=== PATIENT | male | born 1950 | race Caucasian/White ===

== ENCOUNTER 2023-05-19 12:18 | Outpatient (CLI) | payer MEDICARE, OTHER, SELFPAY ==
--- NOTE | ~2023-05-19 | PE_ITS ---
EXAMINATION: PET_PETPSMAST_PT DATE: 05/19/2023 15:09 INDICATION: Prostate cancer TECHNIQUE: 11.2 mCi of pipflufolastat F-18 (18-F-DCFPyL) was administered i.v. Low dose computed fidel ography (CT) images were acquired from the base of the brain to the base of the brain to the proximal thighs for attenuation correction and anatomic localization. Positron emission tomography (PET) imag es were acquired in the same distribution beginning 72 minutes after injection. Images including fuse d PET/CT images were reconstructed in axial, coronal, and sagittal planes. Automated exposure control technique was employed. The dose-length product was 1281.70mGy-cm. COMPARISON: None FINDINGS: Head/neck: Typical pattern of symmetric physiologic increased activity in the lacrimal, parotid and submandibula r glands as well as along the mucosa of the nasal and oral cavities, the debbie-, naso- and hypopharynx, the glottis and esophagus. No pathologically enlarged cervical lymphadenopathy or suspicious foci of increased uptake in the visualized head or neck. Chest: Mild atelectasis at the bilateral lung bases. No suspicious pulmonary nodules, pneumonia, pulmonary e aide or pleural effusion. Heart size is normal. Atherosclerotic coronary artery calcification. No per icardial effusion. Aortic valve calcific lesion. Thoracic aorta is normal in caliber. No pathological ly enlarged or PSMA avid thoracic lymphadenopathy. Abdomen/pelvis/proximal thighs: Physiologic renal accumulation and excretion of activity in the kidneys, bladder and along portions o f ureters. Normal degree and slightly heterogenous pattern of increased uptake throughout the liver a nd spleen without radiologic correlate or dominant PSMA avid lesion. Cholecystectomy clips at the gal lbladder fossa. The pancreas and bilateral adrenal glands are normal. Moderate uptake scattered throu ghout the bowels with typical duodenal and proximal jejunal predominance and without radiologic corre late, also likely physiologic. Normal appendix. Small fat-containing umbilical hernia. Prostatomegaly with 2 focal regions measuring approximately 1.5 cm each with prominent increased uptake, the more c audal in the posterior midline of the prostate with maximal SUV of 76.6 and the more cephalad along t he right side of the prostate with maximal SUV of 23.6 which are both consistent with primary prostat e cancer. There is a tiny focus of mild increased uptake with maximal SUV of 5.4 positioned along the left external iliac vein without an evident corresponding lymph node to more specifically suggest me tastatic disease. No other abnormal foci of increased uptake or pathologically enlarged lymphadenopat hy in the abdomen, pelvis or proximal thighs. Musculoskeletal: Severe lumbar spondylosis. There are bridging osteophytes at multiple levels in the spine, consistent with diffuse idiopathic skeletal hyperostosis (DISH). No suspicious lytic, blastic or PSMA avid bone lesions. IMPRESSION: 1. 2 small regions of prominent increased activity at the prostate consistent with primary prostate c ancer. 2. Tiny focus of mildly increased uptake along the left common iliac vein without evident correspondi ng lymph node to more specifically suggest metastatic disease. No other lesions suspicious for metast atic disease. Reviewed, dictated and finalized at location A. IMPRESSION: 1. 2 small regions of prominent increased activity at the prostate consistent w ith primary prostate cancer. 2. Tiny focus of mildly increased uptake along the left common iliac vein witho ut evident corresponding lymph node to more specifically suggest metastatic dis ease. No other lesions suspicious for metastatic disease.
== END 2023-05-19 12:19 | disposition home or self-care (01) ==
PROVIDERS: Visit Provider Urology
DX: C61 Malignant neoplasm of prostate (principal)
CPT/HCPCS: 78815; A9595

== ENCOUNTER 2023-06-05 13:36 | Outpatient (CLI) | payer MEDICARE, OTHER, SELFPAY ==
--- NOTE | ~2023-06-05 | XR_ITS ---
EXAMINATION: XR chest 2V DATE: 06/05/2023 15:43 INDICATION: Malignant neoplasm of prostate TECHNIQUE: PA and lateral views of the chest were obtained. COMPARISON: None FINDINGS: Mild streaky atelectasis/scarring at the bilateral lung bases. No other airspace opacities, pulmonary edema or pleural effusion. The cardiomediastinal silhouette is normal. Mild thoracic spondylosis. IMPRESSION: 1. Mild bibasilar atelectasis/scarring. Reviewed, dictated and finalized at location A.
[2023-06-05 15:45] LABS: Appearance Urine Clear (Clear); Basophils Absolute Auto 0.1 K/mm3 (0.0-0.1); Basophils Percent Auto 0.7 % (0.2-1.2); Bilirubin Urine Negative (Negative); Blood Urine Negative (Negative); Color Urine Yellow (Yellow); Eosinophils Absolute Auto 0.1 K/mm3 (0-0.3); Eosinophils Percent Auto 1.7 % (0-4.4); Glucose Urine UA Negative (Negative); Hematocrit 41.3 % (42.0-52.0); Hemoglobin 13.6 g/dL (14.0-18.0); Immature Granulocyte Absolute 0.03 K/mm3 (0.00-0.031); Immature Granulocyte Percent A 0.4 % (0-0.5); Ketones Urine Negative (Negative); Leukocyte Esterase Ur Negative LEU/UL (Negative); Lymphocytes Absolute Auto 1.86 K/mm3 (0.9-3.2); Lymphocytes Percent Auto 22.9 % (18.3-44.2); Mean Corpuscular HGB Conc 32.9 g/dl (32-36); Mean Corpuscular Hemoglobin 31.3 pg (26-34); Mean Corpuscular Volume 95.2 fl (80-100); Mean Platelet Volume 10.1 fl (7.4-10.4); Monocytes Absolute Auto 0.7 K/mm3 (0.1-0.6); Monocytes Percent Auto 8.5 % (2.6-8.5); Neutrophils Absolute Auto 5.3 K/mm3 (1.3-6.7); Neutrophils Percent Auto 65.8 % (45.5-73.1); Nitrate Urine Negative (Negative); Platelet Count Result 190 k/mm3 (150-375); Protein Urine Negative (Negative); Red Blood Count 4.34 M/mm3 (4.6-6.20); Red Cell Distribution Width 13.3 % (11.5-14.5); Specific Grav Ur 1.023 (1.001-1.035); Urobilinogen Urine 0.2 mg/dL (<2.0); White Blood Count 8.1 K/mm3 (4.5-10.0)
[2023-06-05 15:55] LABS: INR 1.1; Prothrombin Time 14.6 Seconds (11.1-14.7)
[2023-06-05 15:56] LABS: Alanine Aminotransferase 25 U/L (6-50); Albumin Level 4.5 g/dL (3.5-5.1); Alkaline Phosphatase 53 U/L (38-126); Anion Gap 9 mmol/L (8-16); Aspartate Amino Transferase 28 U/L (17-59); Bilirubin,Total 1.5 mg/dL (0.2-1.3); Blood Urea Nitrogen 21 mg/dL (9-20); Calcium 9.2 mg/dL (8.4-10.2); Carbon Dioxide 23 mmol/L (22-30); Chloride 106 mmol/L (98-107); Estimated Glomerular Filt Rate > 60; Glucose 98 mg/dL (65-110); Potassium 4.6 mmol/L (3.4-5.0); Sodium 138 mmol/L (137-145)
[2023-06-05 16:25] LABS: Add Urine Microscopic? NO
== END 2023-06-05 13:37 | disposition home or self-care (01) ==
LOC: ANHSURGERY 13:44
PROVIDERS: Visit Provider Urology
DX: Z01.818 Encounter for other preprocedural examination (principal); C61 Malignant neoplasm of prostate; J98.11 Atelectasis
CPT/HCPCS: 36415; 71046; 80053; 81003; 85025; 85610; 85730; 86850; 86900; 86901

== ENCOUNTER 2023-06-12 01:27 | Day surgery (SDC) | payer MEDICARE, OTHER, SELFPAY ==
[2023-06-05 14:16] VITALS: BP 125/78; PULSE 52; RESP 16; TEMP 37.1; O2SAT 98; BMI 40.5
--- NOTE | 2023-06-05 14:33 | PC.NURSE ---
Report to the Outpatient Waiting Room, entrance under the green pavilion located off [facility], at time __6:00AM on date __06/12/23 . Planned Procedure Time: __7:30AM . Time changes happen often and if your time is changed the preop area will call you the afternoon before. - You and your visitor will be asked to self-screen and do not enter if you have any COVID symptoms. - A mask is optional within the hospital at this time. Patients may have clear liquids DAY BEFORE SURGERY (water, carbonated beverages, clear teas, apple juice) AND until 3 hours prior to surgery with a maximum of 20 ounces. Take the following medications with a SIP of water the morning of surgery: __NONE DO NOT STOP ANY OF YOUR OTHER PRESCRIPTION MEDICATIONS PRIOR TO SURGERY ?EXCEPT THE FOLLOWING Medications to discontinue per physician ___HOLD ELIQUIS 2 DAYS PRE-OP- LAST DOSE 06/09/23 HOLD ALL VITAMINS/SUPPLEMENTS 7 DAYS PRE-OP PER DR JURADO- LAST DOSE 06/05/23 Please no make-up, nail swazi, hairspray, perfume, deodorant, or body powder the day of surgery. No jewelry (including any body piercings) or valuables the day of surgery, leave them at home. Please take a shower or bath the night before, or the morning of, surgery with an antibacterial soap. Wear comfortable, loose fitting clothing. Children are encouraged to wear pajamas. - Jewelry must be removed prior to entering the operating room. Rings and piercings that are not removed may be cut off. - The hospital will not accept responsibility for valuables. - Please leave all valuables, including medications, at home the day of surgery. If you are going home after surgery, a licensed bicycle taxi driver must drive you home. - NO public transportation without another adult if you receive anesthesia. - We recommend that an adult stay with you for 24 hours following discharge. - We also recommend that you do not drive, make important decision, drink alcoholic beverages, or take any drugs that were not prescribed by your health care provider for at least 24 hours after your discharge time. Follow any additional instructions given to you from your surgeon. BOWEL PREP PER DR JURADO If you or anyone in your household have experienced Covid symptoms in the past week, please notify your surgeon or the nurse liaison at the phone number below for possible testing. Telephone instructions given to _PATIENT and asked if any additional questions and then verbalized understanding. Patient advised to call surgeon office or pre surgery nurse liaison [phone] if any additional questions.
--- NOTE | 2023-06-06 07:20 | PM.IMHP ---
H&P: HPI History of Present Illness Date/Time: 06/06/23 07:20 Chief Complaint: Prostate cancer Narrative: pleasant 73-year-old recently found to have a palpable prostate nodule on digital rectal examination. His PSA was 0.69. Prostate MRI revealed 1 suspicious lesion in the right posterior medial prostate. Subsequent prostate biopsy showed adenocarcinoma Kristen 4+3=7 5+3=8 arising from that nodule and couple additional sites in the right side of his prostate. Staging PSM a PET scan new showed a very scant amount of uptake along the left common iliac vein without corresponding lymph node. It was otherwise unremarkable. After discussion of therapeutic options he has elected for robotic prostatectomy with bilateral extended pelvic lymphadenectomy. He is aware the risk including, but not limited to, adverse cardiopulmonary events, persistent carcinoma, need for additional procedures ( including pelvic radiation), rectal injury, erectile dysfunction and urinary incontinence. Review of Systems Cardiovascular: Cardiovascular: Denies chest pain, Denies lightheadedness, Denies palpitations and Denies dyspnea Respiratory: Respiratory: Denies dyspnea Gastrointestinal: Gastrointestinal: Denies diarrhea, Denies nausea and Denies vomiting Genitourinary: Genitourinary: Denies hematuria and Denies dysuria Endocrine: Endocrine: Denies palpitations PMFSH Social History Social History Smoking status: Never smoker Substance use: never Living arrangements: with family Additional living arrangements comments: Spiritual care concerns: No Meds Home Medications and Allergies Home Medications Medication Instructions Recorded Confirmed Type Mentanx 1 cap PO BID 06/05/23 06/05/23 History acetaminophen 500 mg capsule 1,000 mg PO Q6H PRN Pain 06/05/23 06/05/23 History apixaban 5 mg tablet (Eliquis) 5 mg PO BID 06/05/23 06/05/23 History diltiazem HCl 180 mg 180 mg PO QACDINNER 06/05/23 06/05/23 History capsule,extended release 24 hr, controlled dulaglutide 1.5 mg/0.5 mL 1.5 mg subcut WEEKLY 06/05/23 06/05/23 History subcutaneous pen injector ([facility]) ezetimibe 10 mg tablet 10 mg PO HS 06/05/23 06/05/23 History finasteride 5 mg tablet 5 mg PO HS 06/05/23 06/05/23 History gabapentin 300 mg capsule 900 mg PO HS 06/05/23 06/05/23 History levothyroxine 150 mcg tablet 150 mcg PO HS 06/05/23 06/05/23 History losartan 100 mg tablet 100 mg PO QAM 06/05/23 06/05/23 History metformin 500 mg tablet,extended 1,000 mg PO BID 06/05/23 06/05/23 History release 24 hr rosuvastatin 5 mg tablet 5 mg PO HS 06/05/23 06/05/23 History tamsulosin 0.4 mg capsule 0.4 mg PO HS 06/05/23 06/05/23 History Allergies Allergy/AdvReac Type Severity Reaction Status Date / Time No Known Allergies Allergy Verified 06/05/23 14:02 Vital Signs Vital Signs - 24 hr 06/05/23 14:16 Temperature 98.7 F Pulse Rate 52 L Respiratory Rate 16 Blood Pressure 125/78 Pulse Oximetry 98 Oxygen Delivery Room Air Exam Const: General: no acute distress Resp: Effort & Inspection: normal respiratory effort GI: Inspection: non-distended GI Palp: No abdominal tenderness and No Guarding due to palpation present (GI) Auscultation: normal bowel sounds Assessment and Plan Assessment and plan (1) Prostate cancer: Code(s): C61 - Malignant neoplasm of prostate Status: Acute Assessment and Plan: Robotic assisted radical prostatectomy and bilateral pelvic lymphadenectomy
[2023-06-12] VITALS (13 sets, daily range): BP systolic 112–162; BP diastolic 63–88; PULSE 59–79; RESP 14–21; TEMP 35.5–36.4; O2SAT 93–100; BMI 39.9
--- NOTE | 2023-06-12 06:30 | WPDHPUPDATE1 ---
History and Physical Update Update Date/Time: 06/12/23 06:30 History and Physical has been reviewed, including an updated exam of the patient. There are NO changes in the patient's condition. Risks, benefits, and alternatives have been discussed and questions answered. Patient agrees to proceed with procedure.
[2023-06-12 06:45] LABS: Glucose Point of Care 104 mg/dl (65-105)
[2023-06-12] MEDS: LACTATED RINGERS 1,000 ML 30 ML IV CONT ×2 (06:45→11:37)
--- NOTE | 2023-06-12 06:49 | WPDANESEPPF ---
Anes - Initial Pre Proc Eval Procedure: Operation Date: 06/12/23 07:30 Proposed Procedures p Robotic Assisted Laparoscopic Prostatectomy with Bilateral Pelvic Lymph Node Dissection - Kirby Rosenbaum MD Date/Time: 06/12/23 06:49 Surgeon: Kirby Rosenbaum MD Pre Op Diagnosis: prostate CA Patient Data Age: 73 Gender: M Height: 1.88 m Weight: 141.2 kg Last Vital Signs Temp 37.1 C 06/05/23 14:16 Pulse 52 L 06/05/23 14:16 Resp 16 06/05/23 14:16 BP 125/78 06/05/23 14:16 Pulse Ox 98 06/05/23 14:16 O2 Del Method Room Air 06/05/23 14:16 Allergies Allergy/AdvReac Type Severity Reaction Status Date / Time No Known Allergies Allergy Verified 06/12/23 06:17 Home Medications Medication Instructions Recorded Confirmed Type Mentanx 1 cap PO BID 06/05/23 06/05/23 History acetaminophen 500 mg capsule 1,000 mg PO Q6H PRN Pain 06/05/23 06/05/23 History apixaban 5 mg tablet (Eliquis) 5 mg PO BID 06/05/23 06/05/23 History diltiazem HCl 180 mg 180 mg PO QACDINNER 06/05/23 06/05/23 History capsule,extended release 24 hr, controlled dulaglutide 1.5 mg/0.5 mL 1.5 mg subcut WEEKLY 06/05/23 06/05/23 [facility] ezetimibe 10 mg tablet 10 mg PO HS 06/05/23 06/05/23 History finasteride 5 mg tablet 5 mg PO HS 06/05/23 06/05/23 History gabapentin 300 mg capsule 900 mg PO HS 06/05/23 06/05/23 History levothyroxine 150 mcg tablet 150 mcg PO HS 06/05/23 06/05/23 History losartan 100 mg tablet 100 mg PO QAM 06/05/23 06/05/23 History metformin 500 mg tablet,extended 1,000 mg PO BID 06/05/23 06/05/23 History release 24 hr rosuvastatin 5 mg tablet 5 mg PO HS 06/05/23 06/05/23 History tamsulosin 0.4 mg capsule 0.4 mg PO HS 06/05/23 06/05/23 History Laboratory Tests 06/12/23 06:41 POC Capillary Glucose 104 mg/dl (65-105) Patient hx anesthesia problems: none Family hx anesthesia problems: none Results Review: All pre-operative results and documents have been reviewed as part of the pre-operative evaluation. [facility] Past Medical History Medical History (Updated 06/12/23 @ 06:50 by Rodolfo Prescott MD) Atrial flutter Diabetes Morbid obesity Prostate CA Surgical History Surgical History (Updated 06/12/23 @ 06:50 by Rodolfo Prescott MD) History of total knee arthroplasty Social History Social History Smoking status: Never smoker Substance use: never Living arrangements: with family Additional living arrangements comments: Spiritual care concerns: No Anes - Eval Final PreProcedure Day of Procedure 06/12/23 06:49 Patient weight: morbidly obese Heart: regular rate and rhythm Lungs: clear to auscultation Airway: Mallampati scale class III Neurological: alert and oriented Last oral intake: >/= 8 hours ASA classification: IV Emergent: no Anesthetic plan: proceed Anesthesia type and monitoring: general ETT and standard monitoring Results Review: All pre-operative results and documents have been reviewed as part of the pre-operative evaluation. Informed Consent: The patient's anesthetic plan and its attendant risks including CO, Arrhythmia, CVA and bleeding and benefits were discussed with the patient/family/POA. Questions were solicited and answers provided to the satisfaction of the patient/family/POA.
[2023-06-12] MEDS: ceFAZolin 3 GM/D5W 100 ML 100 ML IVPB (07:32)
[2023-06-12 11:57] LABS: Glucose Point of Care 146 mg/dl (65-105)
--- NOTE | 2023-06-12 11:59 | W.PM.PROC2 ---
Procedure Note - Detailed Date of Procedure 06/12/23 Pre-op Diagnosis Prostate CA Post-op Diagnosis Same Procedure Performed Robotic assisted radical prostatectomy and bilateral lymphadenectomy (extended) Surgeon Kirby Rosenbaum MD Anesthesia General Description of Procedure The patient was brought to the operative suite, where he was prepped and draped in routine sterile fashion while in a dorsal lithotomy, deep Trendelenburg position. A supraumbilical 10 mm trocar was placed after insufflation of the abdomen with a Veress needle. Three robotic ports were then placed under direct vision. Two of these were placed in the right lower quadrant - 10 cm and 20 cm lateral to, and in line with, the umbilicus. A third robotic trocar was placed 10 cm to the left of the umbilicus, and 20 cm to the left of the umbilicus, a 12 mm standard laparoscopic trocar was placed to be used as an assistant community director port. Lastly, a 5 mm trocar was placed in the left upper quadrant midway between the umbilicus and the left robotic trocar. Attention was then turned to the prostatectomy. I opted for a posterior approach in this patient. An incision was made in the parietal peritoneum along the posterior bladder/posterior prostate about 2 cm above the reflection of the peritoneum over the anterior rectum. The seminal vesicles and vas deferens were immediately identified. Dissection is undertaken in a fashion so as to avoid electrocautery as much as possible, particularly near the tips of the seminal vesicles. Dissection was also carried out in the midline so as to avoid any encounters with the ureters. The vas deferens and the seminal vesicles were dissected in their entirety to the base of the prostate. The plane anterior to Denoviller's fascia, anterior to the rectum and posterior to the prostate was then developed. I then dropped the bladder by incising the anterior parietal peritoneum just lateral to the median umbilical ligaments bilaterally. The bladder was dropped from the anterior abdominal and pelvic wall. The endopelvic fascia was identified and incised bilaterally, allowing for dissection of the posterior-lateral aspect of the prostate. The puboprostatic ligaments were transected near their origin from the posterior pubic ramus. This posterior lateral dissection of the prostate is also undertaken in a fashion so as to avoid electrocautery as much as possible. The dorsal vein of the penis is then secured with an 0 -Vicryl ligature. Attention is then turned to the bladder neck. The anterior bladder neck is incised at the vesico-prostatic junction. The previously placed urethral catheter was drawn through the urethrotomy. A very small bladder neck was maintained throughout the remainder of this dissection. The posterior bladder neck was incised in a fashion so as to avoid any injury to the ureteral orifices. Again, the small aperture of the bladder neck was maintained. The previously dissected vas deferens and the seminal vesicles were brought through the posterior bladder neck incision. The lateral prostatic pedicles were then carefully dissected from the lateral aspect of the prostate bilaterally. The prostatic pedicles were secured with Weck clips and transected. The neurovascular bundles were carefully dissected from the posterior-lateral aspect of the prostate. The dorsal vein of the penis was incised with electrocautery. Using cold scissors, the urethra was incised. After withdrawing the previously placed urethral catheter, the posterior urethra was sharply incised, as was the rectalurethralis muscle. Attention was then turned to an extended bilateral pelvic lymphadenectomy. The limits of this dissection were similar bilaterally. Specifically, the limits were the bifurcation of the common iliac vein proximally, the inguinal ligament distally, the obturator nerve posteriorly and the anterior aspect to the external iliac artery laterally. This dissection was undert
[2023-06-12] MEDS: fentaNYL CITRATE INJ (*CRX) 100 MCG/2 ML VIAL 25 MCG IV PUSH ×4 (12:14→13:01)
--- NOTE | 2023-06-12 13:18 | ADMGEN ---
This patient, Robert Alonso, was admitted to 2 Medical Room 260-. Patient/family oriented to hospital policies and general routines including ID bracelet, bed and alarms, visiting hours, pain management, procedures, bathroom and other care routines, personal items, smoking policy, room service/diet, and visiting hours. Information on how to activate the Rapid Response Team has been discussed. Patient/Family are encouraged to report perceived risks to care and to ask questions if they do not understand what they are told or what they should do.
[2023-06-12 17:01] LABS: Glucose Point of Care 164 mg/dl (65-105)
[2023-06-12] MEDS: metFORMIN HCL XR 500 MG TAB.SR.24H 1000 MG PO (17:53)
[2023-06-12] MEDS: DOCUSATE SODIUM 100 MG CAPSULE PO (17:53)
[2023-06-12] MEDS: LACTATED RINGERS 1,000 ML 125 ML IV CONT (18:00)
[2023-06-12] MEDS: GABAPENTIN 300 MG CAPSULE 900 MG PO (20:34)
[2023-06-12] MEDS: ROSUVASTATIN 5 MG TABLET PO (20:35)
[2023-06-12] MEDS: EZETIMIBE 10 MG TABLET PO (20:35)
[2023-06-12] MEDS: LEVOTHYROXINE SODIUM 150 MCG TABLET PO (20:35)
[2023-06-12 20:41] LABS: Glucose Point of Care 171 mg/dl (65-105)
[2023-06-13 00:59] VITALS: BP 141/66; PULSE 70; RESP 20; TEMP 36.3; O2SAT 99
[2023-06-13 03:00] VITALS: PULSE 70; RESP 20; O2SAT 99
[2023-06-13] MEDS: LACTATED RINGERS 1,000 ML 125 ML IV CONT (03:26)
[2023-06-13 06:00] VITALS: BP 136/63; PULSE 64; RESP 20; TEMP 36.3; O2SAT 98
[2023-06-13 06:14] LABS: Hematocrit 38.7 % (42.0-52.0); Hemoglobin 12.7 g/dL (14.0-18.0)
[2023-06-13 06:19] LABS: Anion Gap 6 mmol/L (8-16); Blood Urea Nitrogen 14 mg/dL (9-20); Calcium 8.8 mg/dL (8.4-10.2); Carbon Dioxide 28 mmol/L (22-30); Chloride 103 mmol/L (98-107); Estimated CRCL calculation 104 ml/min; Estimated Glomerular Filt Rate > 60; Glucose 115 mg/dL (65-110); Sodium 137 mmol/L (137-145)
--- NOTE | 2023-06-13 06:57 | WPDUROPN2 ---
Progress Note: A&P Assessment and Plan (1) Prostate cancer: Code(s): C61 - Malignant neoplasm of prostate Status: Acute Assessment and Plan: Patient doing well postop day 1. Increase ambulation and diet this morning. Anticipate discharge this afternoon. Subjective Subjective Date/Time Seen: 06/13/23 06:57 Interval history: Comfortable, no complaints. Slept well Review of Systems Cardiovascular: Cardiovascular: Denies chest pain, Denies lightheadedness, Denies palpitations and Denies dyspnea Respiratory: Respiratory: Denies dyspnea Gastrointestinal: Gastrointestinal: Denies diarrhea, Denies nausea and Denies vomiting Genitourinary: Genitourinary: Denies hematuria and Denies dysuria Endocrine: Endocrine: Denies palpitations Exam Const: General: no acute distress Resp: Effort & Inspection: normal respiratory effort GI: Inspection: non-distended GI Palp: No abdominal tenderness and No Guarding due to palpation present (GI) Auscultation: normal bowel sounds Objective Data Vital Signs Vital Signs: Vital Signs - 24 hr 06/12/23 11:37 06/12/23 11:45 06/12/23 12:00 Temperature 97 F L Pulse Rate 65 78 67 Respiratory Rate 18 19 14 Blood Pressure 144/75 H 140/70 156/72 H Pulse Oximetry 95 98 100 Oxygen Delivery Simple Face Mask Simple Face Mask Simple Face Mask Oxygen Flow Rate 10 10 10 06/12/23 12:15 06/12/23 12:30 06/12/23 12:45 Temperature Pulse Rate 63 67 66 Respiratory Rate 18 18 17 Blood Pressure 162/70 H 155/71 H 162/63 H Pulse Oximetry 94 96 94 Oxygen Delivery Room Air Room Air Room Air Oxygen Flow Rate 06/12/23 13:00 06/12/23 13:10 06/12/23 13:25 Temperature 96 F L 96.9 F L Pulse Rate 65 65 62 Respiratory Rate 19 16 16 Blood Pressure 159/79 H 112/74 145/67 H Pulse Oximetry 93 98 99 Oxygen Delivery Room Air Oxygen Flow Rate 06/12/23 13:55 06/12/23 14:55 06/12/23 15:30 Temperature 97.4 F L 97.4 F L Pulse Rate 79 77 Respiratory Rate 16 16 Blood Pressure 150/74 H 149/79 H Pulse Oximetry 99 99 Oxygen Delivery Room Air Oxygen Flow Rate 06/12/23 22:12 06/13/23 00:59 06/13/23 03:00 Temperature 97.0 F L 97.4 F L Pulse Rate 59 L 70 70 Respiratory Rate 21 H 20 20 Blood Pressure 143/88 H 141/66 H Pulse Oximetry 100 99 99 Oxygen Delivery Room Air Oxygen Flow Rate Intake/Output Intake/Output: Intake & Output 06/10/23 06/11/23 06/12/23 06/13/23 23:59 23:59 23:59 23:59 Intake Total 440 1000 Balance 440 1000 Meds/Results Medications: Active Medications Generic Name Dose Route Start Last Admin Trade Name Freq PRN Reason Stop Dose Admin Dextrose 12.5 gm 06/12/23 11:56 Dextrose 50% 25 Gm/50 Ml Syringe IV PUSH PRN PRN Hypoglycemia Protocol Docusate Sodium 100 mg 06/12/23 17:00 06/12/23 17:53 Docusate Sodium 100 Mg Capsule PO 100 mg BID LUIS Administration Ezetimibe 10 mg 06/12/23 21:00 06/12/23 20:35 Ezetimibe 10 Mg Tablet PO 10 mg HS LUIS Administration Gabapentin 900 mg 06/12/23 21:00 06/12/23 20:34 Gabapentin 300 Mg Capsule PO 900 mg HS LUIS Administration Glucagon 1 mg 06/12/23 11:56 Glucagon For Inj 1 Mg Vial IM PRN PRN Hypoglycemia Protocol Glucose 15 gm 06/12/23 11:56 Glucose Oral Gel 15 Gm Of Glucse In 37.5 Gm Tube PO PRN PRN Hypoglycemia Protocol Hyoscyamine 0.125 mg 06/12/23 13:10 Hyoscyamine Sulfate 0.125 Mg Tablet SUBLINGUAL Q4H PRN Bladder Spasm Dextrose 1,000 mls @ 100 mls/hr 06/12/23 11:56 Dextrose 5% 1,000 Ml IVPB PRN PRN Hypoglycemia Protocol Lactated Ringer's 1,000 mls @ 125 mls/hr 06/12/23 13:10 06/13/23 03:26 Lr - Lactated Ringers Iv IV CONT 125 mls/hr .Q8H LUIS Administration Insulin Aspart 2 - 5 units 06/12/23 12:00 06/12/23 17:02 Insulin Aspart (*Bkc) 100 Units/Ml SUB-Q Not Given TIDWM LUIS Protocol Ketorolac Trometh
--- NOTE | 2023-06-13 08:16 | WPDANESPN ---
Anes - Prog Note Post-Op Date/Time: 06/13/23 08:16 Cardiovascular status: normal Respiratory status: normal Airway patency: baseline Mental status: baseline Post-Op hydration status: normal Vital Signs: Last Vital Signs Temp 36.3 C L 06/13/23 06:00 Pulse 64 06/13/23 06:00 Resp 20 06/13/23 06:00 BP 136/63 06/13/23 06:00 Pulse Ox 98 06/13/23 06:00 O2 Del Method Room Air 06/13/23 03:00 O2 Flow Rate 10 06/12/23 12:00 Pain Score (VAS): no complaints I/O: Intake & Output 06/12/23 06/13/23 06/13/23 23:59 07:59 15:59 Intake Total 240 1000 Balance 240 1000 Laboratory Tests 06/13/23 05:48 06/13/23 05:48 06/12/23 06/12/23 06/12/23 11:56 16:30 20:34 Hgb Hct Sodium Potassium Chloride Carbon Dioxide Anion Gap BUN Creatinine Estim Creat Clear Calc Estimated GFR Glucose POC Capillary Glucose 146 H 164 H 171 H Calcium 06/13/23 05:48 Hgb 12.7 L Hct 38.7 L Sodium 137 Potassium 4.0 Chloride 103 Carbon Dioxide 28 Anion Gap 6 L BUN 14 D Creatinine 0.80 Estim Creat Clear Calc 104 Estimated GFR > 60 Glucose 115 H POC Capillary Glucose Calcium 8.8 Post-procedural complaints: none Patient Feedback: Patient satisfied with anesthetic care.
[2023-06-13 08:23] LABS: Glucose Point of Care 121 mg/dl (65-105)
[2023-06-13] MEDS: levoFLOXacin 500 MG TABLET PO (08:33)
[2023-06-13] MEDS: metFORMIN HCL XR 500 MG TAB.SR.24H 1000 MG PO (08:33)
[2023-06-13] MEDS: LOSARTAN POTASSIUM 100 MG TABLET PO (08:33)
[2023-06-13 11:59] LABS: Glucose Point of Care 97 mg/dl (65-105)
[2023-06-13] MEDS: ACETAMINOPHEN 500 MG TABLET 1000 MG PO (12:13)
--- NOTE | 2023-06-13 12:18 | PM.DS ---
DS: Admitting Diagnosis Discharge Date 06/13/2023 Admitting Diagnosis Prostate cancer DS: Discharge Diagnosis Discharge Diagnosis (1) Prostate cancer: Code(s): C61 - Malignant neoplasm of prostate Status: Acute DS: Summary Hospital Course Hospital Course: This patient was admitted on the morning of his planned robotic prostatectomy. This procedure was uneventful, as was his postoperative course. By the evening of the procedure he was sitting at the bedside in tolerating a liquid diet. The following morning he was ambulating freely and tolerating regular food. His catheter drainage remained essentially clear throughout. His postoperative hemoglobin and serum creatinine were unremarkable. At the time of discharge he has been instructed in appropriate care for his Leyva catheter with both a leg bag and bedside bag. He will be discharged with plans to follow-up in 1 week with a cystogram. Time Spent with Patient Time attestation: Total time spent providing and/or coordinating discharge services: DS: Data Data Completed and Pending Pending studies at discharge: Pending at discharge 06/12/23 09:27 Surgical [PTH] Routine Labs on day of discharge: Labs from last 24 hours 06/13/23 06/13/23 06/13/23 11:55 08:19 05:48 Hgb 12.7 L Hct 38.7 L Sodium 137 Potassium 4.0 Chloride 103 Carbon Dioxide 28 Anion Gap 6 L BUN 14 D Creatinine 0.80 Estim Creat Clear Calc 104 Estimated GFR > 60 Glucose 115 H POC Capillary Glucose 97 121 H Calcium 8.8 06/12/23 06/12/23 20:34 16:30 Hgb Hct Sodium Potassium Chloride Carbon Dioxide Anion Gap BUN Creatinine Estim Creat Clear Calc Estimated GFR Glucose POC Capillary Glucose 171 H 164 H Calcium Discharge Plan Discharge Patient Disposition: Home, Self-Care Discharge Instructions: 1) Leyva catheter -> leg bag / bedside bag at night. 2) No lifting/straining >15lbs. x3 weeks. 3) No driving x1-week. 4) Resume normal, pre-operative diet. 5) My office will contact regarding follow-up in 1-week with cystogram. Stand Alone Forms: General Discharge Instructions Discharge Orders: Discharge Order (Routine); Ordered 06/13/23 Ordered By: Kirby Rosenbaum Discharge Medications: New docusate sodium [Colace] 100 mg capsule 100 mg PO DAILY Qty: 30 0RF hydrocodone-acetaminophen 5-325 mg tablet 1 - 2 tablet PO Q6H PRN (Reason: pain) Qty: 24 0RF hyoscyamine sulfate 0.125 mg tablet 0.125 mg PO Q6H PRN (Reason: bladder spasms) Qty: 20 2RF cephalexin 500 mg capsule 500 mg PO Q8H Qty: 9 0RF Continued levothyroxine 150 mcg tablet 150 mcg PO HS gabapentin 300 mg capsule 900 mg PO HS losartan 100 mg tablet 100 mg PO QAM metformin 500 mg tablet extended release 24 hr 1,000 mg PO BID diltiazem HCl 180 mg capsule,ext.rel 24h degradable 180 mg PO QACDINNER acetaminophen 500 mg Capsule 1,000 mg PO Q6H PRN (Reason: Pain) ezetimibe 10 mg tablet 10 mg PO HS rosuvastatin 5 mg tablet 5 mg PO HS Trulicity 1.5 mg/0.5 mL pen injector 1.5 mg SUBCUT WEEKLY Rx Instructions: TUESDAYS Mentanx 1 cap PO BID Held Eliquis 5 mg tablet 5 mg PO BID Hold Instructions: Resume on 06/14/23. Discontinued tamsulosin 0.4 mg capsule 0.4 mg PO HS finasteride 5 mg tablet 5 mg PO HS
== END 2023-06-13 13:05 | disposition home or self-care (01) ==
LOC: ANHSURGERY 05:53 → ANH2MED 13:16
PROVIDERS: Visit Provider Urology
PROC: 0VT04ZZ Resection of Prostate, Percutaneous Endoscopic Approach (ICD-10-PCS; CPT 55867; principal; 2023-06-12 07:30)
DX: C61 Malignant neoplasm of prostate (principal); I48.92 Unspecified atrial flutter; E11.9 Type 2 diabetes mellitus without complications; E66.01 Morbid (severe) obesity due to excess calories; Z68.41 Body mass index [BMI] 40.0-44.9, adult; Z79.01 Long term (current) use of anticoagulants; Z79.85 Long-term (current) use of injectable non-insulin antidiabetic drugs; Z79.84 Long term (current) use of oral hypoglycemic drugs
CPT/HCPCS: 55866; 38571; S2900; 36415; 80048; 82948; 85014; 85018; 88305; 88309; A9270; J0330; J0690; J1100; J1170; J2405; J2704; J3010; J7030; J7120; Q9968

== ENCOUNTER 2023-06-20 13:40 | Outpatient (CLI) | payer MEDICARE, OTHER, SELFPAY ==
--- NOTE | ~2023-06-20 | XR_ITS ---
EXAMINATION: CYSTOGRAM DATE: 06/20/2023 14:19 INDICATION: Status post prostatectomy for prostate cancer TECHNIQUE: Initial loftsman radiograph of the pelvis was performed. There was retrograde administration of Omnipaque 350 mixed with saline contrast into patient's existing Leyva catheter. A single radiogra ph and 7 fluoroscopic images including a postvoid image were obtained. Fluoroscopy exposure time was 0.6 minutes. FINDINGS: Contrast fills the bladder outline the bulb of the Leyva catheter. No evident extraluminal bladder le ak or vesicoureteral reflux. Severe lower lumbar spondylosis. IMPRESSION: No bladder leak. Reviewed, dictated and finalized at location A. IMPRESSION: No bladder leak.
== END 2023-06-20 13:41 | disposition home or self-care (01) ==
LOC: ANHIMG 13:43
PROVIDERS: Visit Provider Urology
DX: C61 Malignant neoplasm of prostate (principal)
CPT/HCPCS: 51600; 74430; Q9967

== ENCOUNTER 2025-07-11 12:50 | Outpatient (CLI) | payer MEDICARE, SELFPAY ==
[2025-07-11 13:41] LABS: Anion Gap 9 mmol/L (4-12); Blood Urea Nitrogen 20 mg/dL (9-20); Calcium 9.1 mg/dL (8.4-10.2); Carbon Dioxide 23 mmol/L (22-30); Chloride 105 mmol/L (98-107); Estimated Glomerular Filt Rate > 60; Glucose 132 mg/dL (65-110); Potassium 4.3 mmol/L (3.4-5.0); Sodium 137 mmol/L (137-145)
[2025-07-11 13:52] LABS: Hemoglobin A1C 6.0 % (<5.7)
--- OUTSIDE RECORDS SUMMARY | 2025-07-11 13:54 | XMS_ITS | Encounter Summary ---
Author Organization [facility] Address 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
--- OUTSIDE RECORDS SUMMARY | 2025-07-11 13:54 | XMS_ITS | Encounter Summary ---
Author Organization [facility] Address 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
--- OUTSIDE RECORDS SUMMARY | 2025-07-11 13:54 | XMS_ITS | Encounter Summary ---
Author Organization [facility] Address 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
--- OUTSIDE RECORDS SUMMARY | 2025-07-11 13:54 | XMS_ITS | Encounter Summary ---
Author Organization [facility] Address 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
--- OUTSIDE RECORDS SUMMARY | 2025-07-11 13:54 | XMS_ITS | Encounter Summary ---
Author Organization [facility] Address 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
--- OUTSIDE RECORDS SUMMARY | 2025-07-11 13:54 | XMS_ITS | Encounter Summary ---
Author Organization [facility] Address [address] [place] [address] Care Team Providers Care Recycling Center Operator Name Role Phone Zaid Hill MD Primary Care Provider [phone] Travis Stone MD Unavailable [phone] Wilder Whitman MD Unavailable [phone] Dave Tompkins MD Unavailable Reason for Visit * Reason Onset Date Comments Pre Arrival 05/07/2023 Encounter Details Date Type Department Care Team (Late st Contact Info) Description 05/07/2023 Telephone [facility] [address] [facility] [address] [place] [address] Kinga Robert RN Pre Arrival Social History Tobacco Use Types Packs/Day Years Used Date Smoking Tobacco: Never Smokeless Tobacco: Never Alcohol Use Standard Drinks/Week Comments No 0 (1 standard drink = 0.6 oz pur e alcohol) AUDIT-C Answer Date Recorded Q1: How often do you have a drink containing alcohol? Never 04/18/2022 Q2: How many drinks containi ng alcohol do you have on a typical day when you are drinking? Patient does not drink Q3: How often do you have si x or more drinks on one occasion? Never 04/18/2022 Sex and Gender Information Value Date Recorded Sex Assigned at Not on file Legal Sex Male 7:55 PM AMBULANCE DRIVER PARAMEDIC Gender Identity Male 11/24/2020 10:07 AM AMBULANCE DRIVER PARAMEDIC Sexual Orientation Straight 11/24/2020 10 :07 AM AMBULANCE DRIVER PARAMEDIC documented as of this encounter Plan of Treatment Upcoming Encounters Date Type Department Care Team (Late st Contact Info) Description 10/03/2025 7:45 AM AMBULANCE DRIVER PARAMEDIC Hospital Encounter [facility] [address] [place] [address] Sherif Isidro MD [address] [place] [address] 10/03/2025 7:45 AM AMBULANCE DRIVER PARAMEDIC - 10/03/2025 8:00 AM AMBULANCE DRIVER PARAMEDIC Surgery [facility] [address] [place] [address] Sherif Isidro MD [address] [place] [address] COLONOSCOPY Scheduled Procedures Name Priority Associated Diagnoses Date/Ti me COLONOSCOPY Personal history of adenomatous and serrated colon polyps 10/03/2025 7:45 AM AMBULANCE DRIVER PARAMEDIC documented as of this encounter Goals Goal Patient Goal Type Associated Problems Recent Progress Patient-Stated? Author [facility] Fall Prevention Care Plan Chronic Care Management On track(2022 9:55 AM CDT) Tiffani Atkinson RN Note: Problem: Falls Goals: 1. Maintain strength and balance as able 2. Prevent falls and fractures 3. Maximize safety of living environment Strategies: - Educate on fall prevention and follow-up as needed - Recommend activity/exercise program - Refer to allied health as needed - Recommend healthy lifestyle strategies and compensatory methods as needed [facility] Chronic Pain Care Plan Chronic Care Management On track(2022 11:40 AM CDT) Tiffani Atkinson, RN Note: Problem: Chronic Pain Goals: 1. Minimize further functional decline 2. Maximize quality of life 3. Control pain Strategies: - Activity/exercise program recommendation - Conservative stepwise pain medicine strategy with multi-disciplinary approach - Recommend healthy lifestyle strategies and compensatory methods as needed documented as of this encounter Visit Diagnoses Not on filedocumented in this encounter Care Teams Recycling Center Operator Relationship Specialty Start Date End Date Zaid Hill MD [address] [facility] [address], [place] [address] PCP - General 11/15/16 Travis Stone MD [address] [facility] [address], [place] [address] Consulting Physician General Surgery 09/17/19 Wilder Whitman MD [address] [facility] [address], [place] [address] Cardiology 02/14/22 Dave Tmopkins MD [address] [address] Consulting Physician Pain Management 04/17/23 documented as of this encounter
--- OUTSIDE RECORDS SUMMARY | 2025-07-11 13:54 | XMS_ITS | Encounter Summary ---
Author Organization [facility] Address 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
--- OUTSIDE RECORDS SUMMARY | 2025-07-11 13:54 | XMS_ITS | Clinical Summary ---
Author Organization [facility] Address [address] [place] [address] Care Team Providers Care Superintendent Construction Name Role Phone Zaid Hill MD Primary Care Provider [phone] Travis Stone MD Unavailable [phone] Wilder Whitman MD Unavailable [phone] Dave Tompkins MD Unavailable Allergies No known active allergies Medications ezetimibe (ZETIA) 10 mg tablet Take 1 tablet (10 mg total) by mouth nightly Active finasteride (PROSCAR) 5 mg tablet Take 1 tablet (5 mg total) by mouth nightly Active levothyroxine (SYNTHROID) 150 mcg tablet Take 1 tablet (150 mcg total) by mouth nightly Active losartan (COZAAR) 100 mg tablet Take 1 tablet (100 mg total) by mouth every morning Active metFORMIN XR (GLUCOPHAGE XR) 500 mg 24 hr tablet Take 2 tablets (1,000 mg total) by mouth 2 (two) times a day with meals Active cholecalciferol (VITAMIN D-3) 1000 unit tablet Take 2 tablets (2,000 Units total) by mouth every morning Active rosuvastatin (CRESTOR) 5 mg tablet Take 1 tablet (5 mg total) by mouth nightly Active dulaglutide (TRULICITY) 1.5 mg/0.5 mL pen injector Inject 0.5 mL (1.5 mg total) under the skin once a week Tuesdays Active levomefolate-B6 -uuJ55-lhjnc oil (METANX) 3 mg-35 mg-2 mg -90.314 mg capsule Take 1 capsule by mouth 2 (two) times a day Active gabapentin (NEURONTIN) 300 mg capsule Take 1-2 capsules (300-600 mg total) by mouth 2 (two) times a day 300 mg in AM, 600 mg in PM Active apixaban (ELIQUIS) 5 mg tablet Take 1 tablet (5 mg total) by mouth 2 (two) times a day Active DILT-XR 180 mg 24 hr capsule Take 1 capsule (180 mg total) by mouth daily with dinner 12/27/2021 Active acetaminophen 500 mg capsuleIndicati ons:Pain Take 1 capsule (500 mg total) by mouth every 6 (six) hours 30 tablet 05/01/2022 Active OneTouch Ultra Test strip 2 (two) times a day 03/02/2022 Active tamsulosin (FLOMAX) 0.4 mg extended release capsule Take 2 capsules (0.8 mg total) by mouth nightly 02/25/2023 Active Active Problems Problem Noted Date Diagnosed Date Personal history of adenomatous and serrated col on polyps 04/15/2025 Screening for colon cancer 03/02/2025 Primary osteoarthritis of right knee 08/29/2021 Overview (08/29/2021): Added automatically from request for surgery [id number] Status post total left knee replacement 05/21/20 21 Acute calculous cholecystitis 10/12/2019 Chronic bilateral low back pain with right-sided sciatica 09/30/2018 Spondylosis of lumbar region without myelopathy or radiculopathy 09/30/2018 HTN (hypertension) Frequency of urination Diabetes mellitus Morbid obesity Hypothyroid Hyperlipidemia Gait instability Hepatic steatosis Osteoarthritis of right knee Resolved Problems Problem Noted Date Diagnosed Date Resolved Date Primary osteoarthritis of left knee 02/01/2021 05/21/2021 Overview (02/01/2021): Added automatically from request for surgery [id number] Osteoarthritis of left knee 05/21/2021 Encounters Date Type Department Care Team Description 04/15/2025 Orders Only [facility] G[facility]ology at [address] [place] [address] Sherif Isidro MD Personal history of adenomatous and serrated colon polyps (Primary Dx) 04/15/2025 Results Follow-Up [facility] G[facility]ology at [address] [place] [address] Sherif Isidro MD Surgical pathology from Last 3 Months Immunizations Immunization Administration Dates Next Due Influenza, Trivalent, High D ose, Split, Preservative Free, Intramuscular 07/23/2018,07/22/2018 Influenza, Trivalent, IM (MDV) 08/05/2014 Moderna SARS-CoV-2 Monovalent Vaccination (12+ Y RS) 11/29/2020,11/01/2020 ZOSTER Recombinant 10/01/2018,06/29/2018 Surgical History Surgery Date Site/Laterality Comments CHOLECYSTECTOMY 08/29/2019 - 09/28/2019 TONSILLECTOMY KNEE ARTHROSCOPY Right REPLACEMENT TOTAL KNEE 09/29/2020 - 09/28/2021 Left TOTAL KNEE ARTHROPLASTY CARDIOVERSION 02/14/2022 N/A COLONOSCOPY 11/18/2018 N/A PROSTATECTOMY 06/12/2023 Medical History Medical History Date Comments Wears glasses HTN (hypertension) Arthritis Blurred vision Weakness Diabetes mellitus Frequency of urination Bruising Hyperlipidemia Diabetes mellitus Hypothyroid Morbid obesity (HCC) Hepatic steatosis Gait instability Osteoarthritis of right knee Prostate cancer (HCC) Atrial fibrillation/flutter (HCC) Delayed emergence from general anesthesia Colon polyp Type 2 diabetes mellitus Family History Medical History Relation Name Comments Cancer Father Depression Father Hypertension Father Diabetes Mother Heart disease Mother Hypertension Mother Relation Name Status Comments Father Mother Social History Tobacco Use Types Packs/Day Years Used Date Smoking Tobacco: Never Smokeless Tobacco: Never Tobacco Cessation:Counseling Given: Not Answered Alcohol Use Standard Drinks/Week Comments No 0 (1 standard drink = 0.6 oz pur e alcohol) AUDIT-C Answer Date Recorded Q1: How often do you have a drink containing alcohol? Never 03/29/2025 Q2: How many drinks containi ng alcohol do you have on a typical day when you are drinking? Patient does not drink Q3: How often do you have si x or more drinks on one occasion? Never 03/29/2025 Personal Safety Answer Date Recorded Have you ever been in or are you currently in a harmful physical or emotional relationship or is someone making you feel afraid or unsafe? Denies 04/08/2025 Sex and Gender Information Value Date Recorded Sex Assigned at Not on file Legal Sex Male 7:55 PM TRANSPLANT SURGEON Gender Identity Male 11/24/2020 10:07 AM TRANSPLANT SURGEON Sexual Orientation Straight 11/24/2020 10 :07 AM TRANSPLANT SURGEON Obstetrics History Last Filed Vital Signs Vital Sign Reading Time Taken Comments Blood Pressure 130/70 04/08/2025 10:40 AM CDT Pulse 59 04/08/2025 10:45 AM CDT Temperature 36.4 C (97.6 F) 04/08/2025 10:15 AM CDT Respiratory Rate 13 04/08/2025 10:45 AM CDT Oxygen Saturation 97% 04/08/2025 10:45 AM CDT Inhaled Oxygen Concentration - - Weight 141.1 kg (311 lb) 04/08/2025 8:47 AM CDT Height 185.4 cm (6' 1) 04/08/2025 8:47 AM CDT Body Mass Index 41.03 04/08/2025 8:47 AM CDT Plan of Treatment Upcoming Encounters Date Type Department Care Team (Late st Contact Info) Description 10/03/2025 7:45 AM TRANSPLANT SURGEON Hospital Encounter [facility] [address] [place] [address] Sherif Isidro MD [address] [place] [address] 10/03/2025 7:45 AM TRANSPLANT SURGEON - 10/03/2025 8:00 AM TRANSPLANT SURGEON Surgery [facility] [address] [place] [address] Sherif Isidro MD [address] [place] [address] COLONOSCOPY Scheduled Procedures Name Priority Associated Diagnoses Date/Ti me COLONOSCOPY Personal history of adenomatous and serrated colon polyps 10/03/2025 7:45 AM TRANSPLANT SURGEON Health Maintenance Due Date Last Done Comments Depression Screening 1950 Hepatitis C Screening 1950 Dilated Eye Exam 1950 Foot Exam 1950 DTaP/Tdap/Td Vaccine (1 - Tdap) 02/05/1959 Hepatitis B Screening 02/05/1966 Pneumococcal vaccine 65+ (1 of 2 - PCV) 02/05/1967 Well Visit 65+ 02/05/2013 Fall Risk Assessment 05/13/2024 05/13/2023, 04/17/2023, 05/01/2022 Hemoglobin A1C 08/04/2024 02/02/2024, 01/27, 04/18/2022, Additional history exists Albumin Creatinine Ratio, Urine 02/01/2025 , 2023 eGFR 02/01/2025 02/02/2024, 01/27, 04/18/2022, Additional history exists Lipid Panel 03/05/2025 03/05/2024, 2023 Covid-19 Vaccine ( - 2024-2 6 season) 2025 08/02/2021, 11/29/2020, 11/01/2020 Influenza Vaccine (#1) 2025 8, 07/22/2018, 08/05/2014 Zoster Vaccine Completed 10/01/2018, 06/29/2018 Colon Cancer Screening-CT Colonography Discontinued 04/08/2025 Colon Cancer Screening-Colonoscopy Discontinued 04/08/2025 Colon Cancer Screening-DNA Stool Discontinued 04/08/20 Colon Cancer Screening-FIT Discontinued 04/08/2025, Colon Cancer Screening-FOBT Discontinued 04/08/2025, 0 02/12/2023 Colon Cancer Screening-Sigmoidoscopy Discontinued 04/08/2025 Colorectal Cancer Screening Discontinued Goals Goal Patient Goal Type Associated Problems Recent Progress Patient-Stated? Author [facility] Fall Prevention Care Plan Chronic Care Management On track(2022 9:55 AM CDT) Tiffani Atkinson, RN Note: Problem: Falls Goals: 1. Maintain strength and balance as able 2. Prevent falls and fractures 3. Maximize safety of living environment Strategies: - Educate on fall prevention and follow-up as needed - Recommend activity/exercise program - Refer to allied health as needed - Recommend healthy lifestyle strategies and compensatory methods as needed [facility] Chronic Pain Care Plan Chronic Care Management On track(2022 11:40 AM CDT) Tiffani Atkinson RN Note: Problem: Chronic Pain Goals: 1. Minimize further functional decline 2. Maximize quality of life 3. 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 Device Identifier Shelf Expiration Date Model / Serial / Lot [employer] 6191-1-010 Simplex P Radiopaque Full Dose Cement Bone Sterile - [id number] Implanted:Qty: 1 on 04/18/2021 by Phu Sauer MD at [facility] Left: Knee [employer] 06/28/2022 6191-1-010 / / [id number] [employer] 6191-1-010 Simplex P Radiopaque Full Dose Cement Bone Sterile - [id number] Implanted:Qty: 1 on 04/18/2021 by Phu Sauer MD at [facility] Left: Knee [employer] 06/28/2022 6191-1-010 / / [id number] [employer]Or tho [id number] Shannan Ii 35mm 9mm Resurfacing Knee Oval Component Patellar - [id number] Implanted:Qty: 1 on 04/18/2021 by Phu Sauer MD at [facility] Left: Knee [employer] [id number] 10/25/2030 [id number] / / [id number] [employer] [id number] Cmpnt Fem 9 Knee Left Cruciate Retain Journey Ii Cocr - [id number] Implanted:Qty: 1 on 04/18/2021 by Phu Sauer MD at [facility] Left: Knee [employer] [id number] 11/15/2027 [id number] / / [id number] [employer] [id number] Journey Bicruciate Stabilize Knee Left 8 Baseplate Tibial - [id number] Implanted:Qty: 1 on 04/18/2021 by Phu Sauer MD at [facility] Left: Knee [employer] [id number] 07/09/2030 [id number] / / [id number] [employer] [id number] Ii [id number] Deep [facility] Knee Left 7-8 Insert Articular - [id number] Implanted:Qty: 1 on 04/18/2021 by Phu Sauer MD at [facility] Left: Knee [employer] [id number] 12/29/2023 [id number] / / [id number] [employer] Journey [id number] 50mm Bicruciate Stabilized Knee Right 3d 8 [id number] - [id number] Implanted:Qty: 1 on 04/30/2022 by Phu Sauer MD at [facility] Right: Knee [employer] [id number] 02/05/2032 [id number] / / [id number] [employer] Component Femoral Knee Cemented Cruciate Retaining Right Journey Ii Size 9 Oxinium [id number] - [id number] Implanted:Qty: 1 on 04/30/2022 by Phu Sauer MD at [facility] Right: Knee [employer] [id number] 09/10/2031 [id number] / / [id number] Insert Artic 7-8 [id number] Knee Right Deep [facility] Metal Pe - [id number] Implanted:Qty: 1 on 04/30/2022 by Phu Sauer MD at [facility] Right: Knee [employer] 01/29/2027 [id number] / / [id number] [employer] Simplex P Radiopaque Full Dose Cement Bone Sterile 6191-1-010 - [id number] Implanted:Qty: 1 on 04/30/2022 by Phu Sauer MD at [facility] Right: Knee [employer] 08/28/2024 6191-1-010 / / [id number] [employer] Simplex P Radiopaque Full Dose Cement Bone Sterile 6191-1-010 - [id number] Implanted:Qty: 1 on 04/30/2022 by Phu Sauer MD at [facility] Right: Knee [employer] 08/28/2024 6191-1-010 / / [id number] [employer] Shannan Ii 35mm 9mm Resurfacing Knee Oval Component Patellar [id number] - [id number] Implanted:Qty: 1 on 04/30/2022 by Phu Sauer MD at [facility] Right: Knee [employer] [id number] 01/01/2032 [id number] / / [id number] Procedures Procedure Name Priority Date/Time Associated Diagnosis Comments COLONOSCOPY 04/08/2025 9:24 AM CDT LIPID PANEL Routine 03/05/2024 8:55 AM CDT EGFR Routine 02/02/2024 10:30 AM CDT HEMOGLOBIN A1C Routine 02/02/2024 10:30 AM CDT ALBUMIN CREATININE RATIO, URINE Routine 02/02/2024 10:30 AM CDT from Last 3 Months or Most Recently Relevant to Health Maintenance Results * Colonoscopy (04/08/2025 9:24 AM CDT) Anatomical Region Laterality Modality Other Narrative Procedure Note Sherif Isidro MD - 04/08/2025 9:24 AM CDT [facility] ENDOS[facility] Patient Name: Robert Alonso Procedure Date: 04/08/2025 9:24 AM Date of : 1950 Admit Type: Outpatient Age: 75 Gender: Male Attending MD: Sherif Isidro M.D. Room: [facility] ENDOSCOPY ROOM 04 Note Status: Finalized Procedure: Colonoscopy Indications: High risk colon cancer surveillance: Personalhistory of colonic polyps Referring MD: Providers: Sherif Isidro M.D. Medicines: See the Anesthesia note for documentation of the administered medications Complications: No immediate complications. Estimated Blood Loss: Estimated blood loss was minimal. Procedure: Pre-Anesthesia Assessment: - Prior to the procedure, a History and Physicalwas performed, and patient medications and allergieswere reviewed. The risks and benefits of the procedureand the sedation options and risks were discussed withthe patient. All questions were answered and informed consent was obtained. Patient identification and proposed procedure were verified. After reviewingthe risks and benefits, the patient was deemed in satisfactory condition to undergo the procedure.The anesthesia plan was to use monitored anesthesiacare (MAC). Immediately prior to administration of medications, the patient was re-assessed foradequacy to receive sedatives. The heart rate, respiratory rate, oxygen saturations, blood pressure, adequacyof pulmonary ventilation, and response to care were monitored throughout the procedure. The physical status of the patient was re-assessed after the procedure. The benefits, risks and alternatives of theprocedure and sedation were discussed and informed consentwas obtained. All questions were answered. Please referto the signed informed consent document in the medical record. The scope was passed under direct vision.The [id number] colonoscope was introduced through theanus and advanced to the cecum, identified byappendiceal orifice and ileocecal valve. The colonoscopy was performed without difficulty. The patient tolerated the procedure well. The quality of the bowel preparation was good. Scope insertion time was 3 minutes. Scope withdrawal time was 34 minutes. Prep was administered in a split dose. Findings: The perianal and digital rectal examinations were normal. Two sessile polyps were found in the cecum. The polyps were 5 - 7 mmin size. These polyps were removed with a cold snare. Resection and retrieval were complete. Four sessile polyps were found in the ascending colon. The polypswere 7 - 15 mm in size. These polyps were removed with a cold snare.Resection (largest polyp resected piecemeal) and retrieval were complete. Three sessile polyps were found in the transverse colon. The polypswere 6 - 15 mm in size. These polyps were removed with a cold snare. Resection (largest polyp resected piecemeal) and retrieval werecomplete. Diverticula (mild) were found in the entire colon. Internal hemorrhoids were found. The hemorrhoids were small. Impression: - Two 5 - 7 mm polyps in the cecum, removed with a cold snare. Resected and retrieved. - Four 7 - 15 mm polyps in the ascending colon, removed with a cold snare. Resected andretrieved. - Three 6 - 15 mm polyps in the transverse colon, removed with a cold snare. Resected andretrieved. - Diverticulosis in the entire examined colon. - Internal hemorrhoids. Recommendation: - Await pathology results. - Resume previous diet today. - Discharge patient to home. - Increase fiber. - Patient has a contact number available for emergencies. The signs and symptoms of potential delayed complications were discussed with thepatient. Return to normal activities tomorrow. Written discharge instructions were provided to thepatient. - Repeat colonoscopy in 6 months forsurveillance. - Ok to resume anticoagulation in 24 hours. - I would be happy to see you in my GI clinic ifyou have further questions or concerns or if symptoms progress Sherif Isidro M.D. 04/08/2025 10:16:00 AM Number of Addenda: 0 Note Initiated On: 04/08/2025 9:24 AM Recognized by the [place] [employer] for promoting quality in endoscopy Sherif Isidro MD ENDOSCOPY PROCEDURES Hermila l Result * (ABNORMAL) Lipid panel (03/05/2024 8:55 AM CDT) Cholesterol 149 30 - 199 mg/dL Comment: Interpretive Data Ages < or = 19 years Acceptable: <170 mg/dL Borderline high: 170-199 mg/dL High: >or= 200 mg/dL Ages > or = 20 years Desirable: <200 mg/dL Borderline high: 200-239 mg/dL High: >or= 240 mg/dL Literature References: 1. Expert Panel on Integrated Guidelines for Cardiovascular Health and Risk Reduction in Children and Adolescents. Pediatrics 2011;128:S213 2. NCEP Expert Panel. Circulation 2004;110:227 Current Interpretive Data was last revised on 2018. Testing performed by: [address] [address] Triglycerides 200(H) <=149 mg/dL [facility] Comment: Interpretive Data Ages < or = 9 years Acceptable: <75 mg/dL Borderline high: 75-99 mg/dL High: >or= 100 mg/dL Ages 10 to 20 years Acceptable: <90 mg/dL Borderline high: 90-129 mg/dL High: >or= 130 mg/dL Ages > or = 20 years Desirable: <150 mg/dL Borderline high: 150-199 mg/dL High: 200-499 mg/dL Very high: >or= 499 mg/dL Literature References: 1. Expert Panel on Integrated Guidelines for Cardiovascular Health and Risk Reduction in Children and Adolescents. Pediatrics 2011;128:S213 2. NCEP Expert Panel. Circulation 2004;110:227 Current Interpretive Data was last revised on 2018. Testing performed by: [address] [address] HDL 45 >=40 mg/dL [facility] Comment: Interpretive Data Ages < or = 19 years Acceptable: >45 mg/dL Borderline low: 40-45 mg/dL Low: <40 mg/dL Ages > or = 20 years Desirable: >or= 60 mg/dL Low: <40 mg/dL Literature References: 1. Expert Panel on Integrated Guidelines for Cardiovascular Health and Risk Reduction in Children and Adolescents. Pediatrics 2011;128:S213 2. NCEP Expert Panel. Circulation 2004;110:227 Current Interpretive Data was last revised on 2018. Testing performed by: [address] [address] LDL, calculated 64 <=129 mg/dL [facility] Comment: Interpretive Data Ages < or = 19 years Acceptable: <110 mg/dL Borderline high: 110-129 mg/dL High: >or= 130 mg/dL Ages > or = 20 years Optimal: <100 mg/dL Near optimal: 100-129 mg/dL Borderline high: 130-159 mg/dL High: >160 mg/dL Literature References: 1. Expert Panel on Integrated Guidelines for Cardiovascular Health and Risk Reduction in Children and Adolescents. Pediatrics 2011;128:S213 2. NCEP Expert Panel. Circulation 2004;110:227 Current Interpretive Data was last revised on 2018. Testing performed by: [address] [address] Non-HDL Cholesterol 104 mg/dL [facility] Comment: Interpretive Data Ages < or = 19 years Acceptable: <120 mg/dL Borderline high: 120-144 mg/dL High: >145 mg/dL Ages > or = 20 years When triglycerides are >200 mg/dL, Non-HDL cholesterol is a secondary target of therapy with treatment goals that are 30 mg/dL greater than the LDL cholesterol target. Literature References: 1. Expert Panel on Integrated Guidelines for Cardiovascular Health and Risk Reduction in Children and Adolescents. Pediatrics 2011;128:S213 2. NCEP Expert Panel. Circulation 2004;110:227 Current Interpretive Data was last revised on 2018. Testing performed by: [address] [address] Chol/HDL ratio 3 [facility] Comment:Testing performed by : [address] [address] Blood 03/05/2024 8:55 AM CDT 03/05/2024 9:13 AM CDT us Wilder Whitman MD LAB BLOOD ORDERABLES Final Resu lt [facility] Department [place] [address] * eGFR (02/02/2024 10:30 AM CDT) eGFR >90 >=60 mL/min/1. 73 m2 Comment: Interpretive Data Reference Interval Normal >/= 90 mL/min/1.73m2 Mildly decreased* 60 - 89 mL/min/1.73m2 Mildly to moderately decreased 45 - 59 mL/min/1.73m2 Moderately to severely decreased 30 - 44 mL/min/1.73m2 Severely decreased 15 - 29 mL/min/1.73m2 Kidney Failure < 15 mL/min/1.73m2 *Relative to young adult level Estimated glomerular filtration rate is determined by the 2020 CKD-EPI equation recommended by the National Kidney Foundation (A Unifying Approach to GFR Estimation: Recommendations of the NKF-ASK Task Force on Reassessing the Inclusion of Race in Diagnosing Kidney Disease, JASN 2020). The CKD-EPI equation should not be used for patients with unstable renal function and has not been validated in children and those over 70. Current interpretive data was last reviewed 2021. Blood 02/02/2024 10:3 0 AM CDT 02/02/2024 6:10 PM CDT us Andrew Durant MD LAB BLOOD ORDERABLES Final Result [facility] [address] Department [place] [address] * Albumin Creatinine Ratio, Urine (02/02/2024 10:30 AM CDT) Albumin Ur 21.5 mg/L Comment: Interpretive Data No reference range established. Current interpretive data was last revised 2019. Creatinine Ur 120.6 mg/dL [facility] Comment: Interpretive Data No reference range established. Current interpretive data was last revised 2019. Albumin Creatinine Ratio, Ur 18 1 - 29 mg/g [facility] Urine 02/02/2024 10:3 0 AM CDT 02/02/2024 5:17 PM CDT Andrew Durant MD LAB URINE ORDERABLES Final Result Performing Organization Address [facility] de Phone Number [facility] [address] Department [place] [address] * (ABNORMAL) Hemoglobin A1c (02/02/2024 10:30 AM CDT) Hgb A1C 5.7(H) 4.0 - 5.6 % Estimated Average Glucose 117 mg/dL [facility] Comment: The ADA recommends reporting an estimated Average Glucose (eAG) with all Hemoglobin A1c results using the equation derived from a study of 507 normal and diabetic adults. Minority populations were underrepresented and children were not included. (Diabetes Care 31:0601-7457, 2008). The eAG is not equivalent to a fasting glucose. Blood 02/02/2024 10:3 0 AM CDT 02/02/2024 5:17 PM CDT Andrew Durant MD LAB BLOOD ORDERABLES Final Result Performing Organization Address [facility] de Phone Number [facility] [address] [facility] [place] [address] from Last 3 Months or Most Recently Relevant to Health Maintenance Insurance MEDICARE [facility] MEDICARE MEDICARE [facility] MEDICARE SUPPLEMENT Advance Directives For more information, please contact: [phone] * Full Code (Latest Code Status on File) Date Activated Date Inactivated Comments 04/30/2022 6:12 PM 05/01/2022 6:32 PM * Full Code Date Activated Date Inactivated Comments 04/18/2021 4:03 PM 04/19/2021 5:43 PM * Full Code Date Activated Date Inactivated Comments 09/15/2019 8:08 PM 09/18/2019 5:30 PM Care Teams Superintendent Construction Relationship Specialty Start Date End Date Zaid Hill MD [address] [address] PCP - General 11/15/16 Travis Stone MD [address] [address] Consulting Physician General Surgery 09/17/19 Wilder Whitman MD [address] WOODY [address] [address] Cardiology 02/14/22 Dave Tompkins MD [address] [address] Consulting Physician Pain Management 04/17/23
--- OUTSIDE RECORDS SUMMARY | 2025-07-11 13:54 | XMS_ITS | Encounter Summary ---
Author Organization [facility] Address 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
--- OUTSIDE RECORDS SUMMARY | 2025-07-11 13:54 | XMS_ITS | Clinical Summary ---
Author Organization [facility] Address [address] [place] [address] Care Team Providers Care Revenue Field Auditor Name Role Phone Unavailable Primary Care Provider Unavailabl e Source Comments [facility] [employer],non-owned Affiliates and Associated Physician Practices is amultiple site organization consisting of ambulatory clinics and hospital sitesin [place], [place], [place] and [place]. This disclosure is being madepursuant to the Care Everywhere program and may not contain all information available regarding this patient. Last updated 18.[facility] [employer] Social History Tobacco Use Types Packs/Day Years Used Date Smoking Tobacco: Never Assessed Sex and Gender Information Value Date Recorded Sex Assigned at Not on file Legal Sex Male 11:51 AM CDT Gender Identity Not on file Sexual Orientation Not on file Plan of Treatment Health Maintenance Due Date Last Done Comments MEDICARE AWV 12 MONTHS 1950 HEPATITIS C SCREENING 02/01/1966 DTAP/TDAP/TD VACCINES (1 - Tdap) 02/05/1967 PNEUMOCOCCAL VACCINE 50+ (1 of 1 - PCV) 02/05/1998 ZOSTER VACCINE (1 of 2) 02/05/1998 Respiratory Syncytial Virus (RSV) Vaccine Pt: or over 60 yrs (1 - 1-dose 75+ series) 02/05/2023 DEPRESSION SCREENING 09/29/2024 COVID-19 VACCINE ( - 2023-2 5 season) 2025 INFLUENZA VACCINE (#1) 2025 HEPATITIS B VACCINE Aged Out No longe r eligible based on patient's age to complete this topic HIB VACCINE Aged Out No longer eligi ble based on patient's age to complete this topic HPV VACCINE Aged Out No longer eligi ble based on patient's age to complete this topic MENINGOCOCCAL (Group B) VACC INE SHARED DECISION-MAKING Aged Out No longer eligibl e based on patient's age to complete this topic MENINGOCOCCAL GROUPS A/C/Y/W VACCINE Aged Out No longer eligible b ased on patient's age to complete this topic Insurance MEDICARE [facility]
--- OUTSIDE RECORDS SUMMARY | 2025-07-11 13:54 | XMS_ITS | Encounter Summary ---
Author Organization [facility] Address 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
--- OUTSIDE RECORDS SUMMARY | 2025-07-11 13:54 | XMS_ITS | Clinical Summary ---
Author Organization [facility] Address [address] 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
--- OUTSIDE RECORDS SUMMARY | 2025-07-11 13:54 | XMS_ITS | Encounter Summary ---
Author Organization [facility] Address 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
--- OUTSIDE RECORDS SUMMARY | 2025-07-11 13:54 | XMS_ITS | Encounter Summary ---
Author Organization [facility] Address 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
--- OUTSIDE RECORDS SUMMARY | 2025-07-11 13:54 | XMS_ITS | Encounter Summary ---
Author Organization [facility] Address [address] [place] [address] Care Team Providers Care Metal Mover Name Role Phone Unavailable Primary Care Provider Unavailabl e Encounter Details Date Type Department Care Team (Late st Contact Info) Description 08/07/1998 Outpatient Historical HIS [facility] INTERNAL MEDICINE Rodolfo Soto MD Social History Tobacco Use Types Packs/Day Years Used Date Smoking Tobacco: Never Assessed Sex and Gender Information Value Date Recorded Sex Assigned at Not on file Legal Sex Male 3:00 AM HAND SPRING FORMER Gender Identity Not on file Sexual Orientation Not on file documented as of this encounter Plan of Treatment Not on file documented as of this encounter Visit Diagnoses Not on filedocumented in this encounter
--- OUTSIDE RECORDS SUMMARY | 2025-07-11 13:54 | XMS_ITS | Encounter Summary ---
Author Organization [facility] Address [address] [place] [address] Care Team Providers Care Brick Pitcher Name Role Phone Unavailable Primary Care Provider Unavailabl e Encounter Details Date Type Department Care Team (Late st Contact Info) Description 09/07/2024 Lab Requisition [facility] - DermPath Lab [address] [place] [id number] Anca Hill PA [address] [place] [address] Social History Tobacco Use Types Packs/Day Years Used Date Smoking Tobacco: Never Assessed Sex and Gender Information Value Date Recorded Sex Assigned at Not on file Legal Sex Male 11:51 AM CDT Gender Identity Not on file Sexual Orientation Not on file documented as of this encounter Plan of Treatment Not on file documented as of this encounter Procedures Procedure Name Priority Date/Time Associated Diagnosis Comments DERMATOPATHOLOGY Routine 09/07/2024 9:01 AM LEAD MANUFACTURING TECHNICIAN documented in this encounter Results * DERMATOPATHOLOGY (09/07/2024 9:01 AM LEAD MANUFACTURING TECHNICIAN) Case Report Dermatopathology Report Case: [id number] Authorizing Provider: Anca Hill PA Collected: 09/07/2024 09:01 AM Ordering Location: [facility] - Received: 09/07/2024 03:53 PM DermPath Lab Pathologist: Amadou Villagran MD Specimens: A) - Skin, left zygoma B) - Skin, left lateral lower leg 4:12 PM LEAD MANUFACTURING TECHNICIAN DERMATOPATHOLOGY LABORATORY Final Diagnosis Specimen A. 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 SKIN, left lateral lower leg: HYPERPLASTIC (HYPERTROPHIC) ACTINIC KERATOSIS, LICHENOID (L57.0) 4 4:12 PM [facility] DERMATOPATHOLOGY LABORATORY at [address] LEAD MANUFACTURING TECHNICIAN Clinical History A-B: SCC, growing 4 4:12 PM [facility] DERMATOPATHOLOGY LABORATORY Gross Description Specimen A: Received is one formalin filled container labeled with the patient's name and designated left zygoma. The specimen consists of a shave biopsy measuring 8x7x1 mm. Jar 0. Specimen B: Received is one formalin filled container labeled with the patient's name and designated left lateral lower leg. The specimen consists of a shave biopsy measuring 7x5x1 mm. Jar 0. 4 4:12 PM [facility] DERMATOPATHOLOGY LABORATORY Microscopic Description Specimen A. SKIN, left zygoma: The epidermis shows parakeratosis, full thickness disorderly maturation of keratinocytes, mitoses at different levels, and dyskeratotic cells. The lesion extends to the base of the biopsy. COMMENT: An invasive squamous cell carcinoma cannot be ruled out. Specimen B. SKIN, left lateral lower leg: There is hyperkeratosis alternating with parakeratosis. There is epidermal hyperplasia with disorderly maturation of keratinocytes with nuclear pleomorphism confined to the lower half of the epidermis. 4 4:12 PM [facility] DERMATOPATHOLOGY LABORATORY Disclaimer An external and internal positive and negative controls are appropriate for the histochemical, immunohistochemical and immunofluorescence stain(s) in this case (if any), except where stated explicitly. The performance characteristics of the stain(s) cited in this report were developed and its performance characteristic determined by the Dermatopathology Laboratory at [facility], directed by Dr. Joellen Villagran. These tests need not be, and therefore are not, approved by the [place] Food and Drug Administration. The tests are used for clinical purposes. Billing Codes Specimen Charges Stain Charges 00985 [id number] 1 1 4 4:12 PM [facility] DERMATOPATHOLOGY LABORATORY Embedded Images 4 4:12 PM [facility] DERMATOPATHOLOGY LABORATORY Pathology/Cytology TISSUE SPECIMEN FROM SKIN / Unknown 09/07/2024 9:01 AM LEAD MANUFACTURING TECHNICIAN 09/07/2024 3:53 PM [facility] Miscellaneous samples (specimen) TISSUE SPECIMEN FROM SKIN / Unknown 09/07/2024 9:01 AM LEAD MANUFACTURING TECHNICIAN 09/07/2024 3:53 PM LEAD MANUFACTURING TECHNICIAN us [facility] - PATHOLOGY/CYTOLOGY ORDERAB LES Final Result DERMATOPATHOLOGY LABORATORY [facility] - Department of Dermatology [facility] [address] [place] [address], [address] [phone] documented in this encounter Visit Diagnoses Not on filedocumented in this encounter
== END 2025-07-11 12:51 | disposition home or self-care (01) ==
LOC: ANHSURGERY 12:53
PROVIDERS: Anesthesiology; PCP Internal Medicine; Visit Provider Urology
DX: N39.3 Stress incontinence (female) (male) (principal); E11.9 Type 2 diabetes mellitus without complications
CPT/HCPCS: 36415; 80048; 83036; 87086

== ENCOUNTER 2025-07-20 02:35 | Day surgery (SDC) | payer MEDICARE, SELFPAY ==
[2025-07-08 15:53] VITALS: BMI 41.5
--- NOTE | 2025-07-11 10:05 | PC.NURSE ---
[facility] has started construction of its new state of the art ER which will open Spring 2026. With this, we anticipate parking may be a challenge for some our surgical patients and families. Parking spaces are limited but are available for all Surgical, obstetrics, and ER patients sharing this lot. If you arrive and find you are having a hard time finding a parking space, please note that we understand the challenges, please drive around the hospital and park near Hospital Entrance 1. When you enter this entrance, you can ask a volunteer to direct or take you back to the surgical waiting area to check in. We appreciate everyone?s understanding of these expected challenges while we build for your future. Report to the Outpatient Waiting Room, entrance under the green pavilion located off [address], at time __7:30AM___ on date __07/20/25___. Planned Procedure Time: ___9:30AM___.? Time changes happen often and if your time is changed the preop area will call you the afternoon before. - You and your visitor will be asked to self-screen and do not enter if you have any COVID symptoms. Please call surgeon if you need to reschedule. - A mask is optional within the hospital at this time. Patients may have clear liquids (water, carbonated beverages, clear teas, apple juice) until 3 hours prior to surgery (6:30AM) with a maximum of 20 ounces. - No food from midnight until time of surgery and no smoking, or chewing tobacco (or any form of nicotine). No chewing gum, candy or mints. Take only the following medications with a SIP of water on the morning of surgery: __NONE DO NOT STOP ANY OF YOUR OTHER PRESCRIPTION MEDICATIONS PRIOR TO SURGERY EXCEPT THE FOLLOWING Medications to discontinue per physician ___HOLD BLU PER DR BHAKTA(PATIENT CONFIRMING WITH OFFICE) Date to take last dose Please no make-up, nail occitan, hairspray, perfume, deodorant, or body powder the day of surgery.? No jewelry (including any body piercings) or valuables the day of surgery, leave them at home.? Please take a shower or bath the night before, or the morning of, surgery with an antibacterial soap.? Wear comfortable, loose fitting clothing.? - Jewelry must be removed prior to entering the operating room.? Rings and piercings that are not removed may be cut off. - The hospital will not accept responsibility for valuables.? - Please leave all valuables, including medications, at home the day of surgery. If you are going home after surgery, a licensed dedicated driver must drive you home.? - NO public transportation without another adult if you receive anesthesia. - We recommend that an adult stay with you for 24 hours following discharge. - We also recommend that you do not drive, make important decision, drink alcoholic beverages, or take any drugs that were not prescribed by your health care provider for at least 24 hours after your discharge time. Follow any additional instructions given to you from your surgeon. Telephone instructions given to ___PATIENT and asked if any additional questions and then verbalized understanding. Patient advised to call surgeon office or pre surgery nurse liaison [phone] if any additional questions.
[2025-07-20] VITALS (12 sets, daily range): BP systolic 116–164; BP diastolic 62–87; PULSE 48–63; RESP 8–20; TEMP 36.1–36.7; O2SAT 94–99
[2025-07-20] MEDS: VANCOMYCIN 1,750 MG/NS 500 ML BAG 250 MG IVPB (10:15)
[2025-07-20] MEDS: GENTAMICIN SULFATE IVPB (10:15)
[2025-07-20] MEDS: LACTATED RINGERS 1,000 ML 30 ML IV CONT ×2 (10:15→13:58)
[2025-07-20] MEDS: DEXTROSE 5% IVPB (10:15)
--- NOTE | 2025-07-20 10:39 | WPDANESEPPF ---
Anes - Initial Pre Proc Eval Procedure: Operation Date: 07/20/25 11:30 Proposed Procedures p Advance Male Sling with Cystoscopy - Tacho Peña MD Date/Time: 07/20/25 10:39 Surgeon: Tacho Peña MD Pre Op Diagnosis: male stress incontinence Patient Data Age: 75 Gender: M Height: 1.85 m Weight: 143 kg Allergies Allergy/AdvReac Type Severity Reaction Status Date / Time No Known Allergies Allergy Verified 07/08/25 15:45 Home Medications ?Medication ?Instructions ?Recorded ?Confirmed ?Type Mentanx 1 cap PO BID 06/05/23 07/11/25 History acetaminophen 500 mg capsule 1,000 mg PO Q6H PRN Pain 06/05/23 07/08/25 History apixaban 5 mg tablet (Eliquis) 5 mg PO BID 06/05/23 07/08/25 History diltiazem HCl 180 mg 180 mg PO QACDINNER 06/05/23 07/08/25 History capsule,extended release 24 hr, controlled dulaglutide 1.5 mg/0.5 mL 1.5 mg subcut WEEKLY 06/05/23 07/08/25 History subcutaneous pen injector (Trulicity) ezetimibe 10 mg tablet 10 mg PO HS 06/05/23 07/08/25 History gabapentin 300 mg capsule 900 mg PO HS 06/05/23 07/08/25 History levothyroxine 150 mcg tablet 150 mcg PO HS 06/05/23 07/08/25 History losartan 100 mg tablet 100 mg PO QAM 06/05/23 07/08/25 History metformin 500 mg tablet,extended 1,000 mg PO BID 06/05/23 07/08/25 History release 24 hr rosuvastatin 5 mg tablet 5 mg PO HS 06/05/23 07/08/25 History cephalexin 500 mg capsule 500 mg PO Q8H #9 caps 06/13/23 07/08/25 Rx MENTANX 1 cap PO BID 07/08/25 07/08/25 History blood sugar diagnostic (OneTouch 07/08/25 07/08/25 History Verio test strips) Laboratory Tests 07/20/25 10:09 POC Capillary Glucose 117 H mg/dl (65-105) Patient hx anesthesia problems: none Family hx anesthesia problems: none Results Review: All pre-operative results and documents have been reviewed as part of the pre-operative evaluation. [facility] Past Medical History Medical History Prostate CA Diabetes Atrial flutter Morbid obesity Surgical History Surgical History History of total knee arthroplasty Social History Social History Smoking status: Never smoker Alcohol intake: never Substance use: never Substance use type: does not use Lack of Transportation: No Lack of Food: Never True Current Housing: I Have Housing Concerned About Future Housing: No Difficulty Paying Gas/Electric Bills: No Difficulty Paying for Meds: No Currently Unemployed: No Education: Master's Degree or Higher Difficulty w/ Childcare or Family Care: No Living arrangements: with family Additional living arrangements comments: Spiritual care concerns: No Anes - Eval Final PreProcedure Day of Procedure 07/20/25 10:39 Patient weight: morbidly obese Heart: regular rate and rhythm Lungs: clear to auscultation and decreased breath sounds Airway: Mallampati scale class III Neurological: alert and oriented Last oral intake: >/= 8 hours ASA classification: III Emergent: no Anesthetic plan: proceed Anesthesia type and monitoring: general LMA and standard monitoring Results Review: All pre-operative results and documents have been reviewed as part of the pre-operative evaluation. Informed Consent: The patient's anesthetic plan and its attendant risks and benefits were discussed with the patient/family/POA. Questions were solicited and answers provided to the satisfaction of the patient/family/POA.
--- NOTE | 2025-07-20 10:49 | WPDHPUPDATE1 ---
History and Physical Update Update Date/Time: 07/20/25 10:49 History and Physical has been reviewed, including an updated exam of the patient. There are NO changes in the patient's condition. Risks, benefits, and alternatives have been discussed and questions answered. Patient agrees to proceed with procedure.
--- NOTE | 2025-07-20 13:53 | P.OP_ITS ---
Procedure Note - Detailed Date of Procedure 07/20/25 Pre-op Diagnosis male stress incontinence morbid obesity Post-op Diagnosis Same Procedure Performed 1. Placement of AMS Advance male sling. 2. Cystoscopy. Surgeon Tacho Peña MD Anesthesia General Description of Procedure Informed consent was obtained. The patient was taken to the operating room and given preoperative IV antibiotics with vancomycin and gentamicin, the patient has received oral Levaquin for the past 48 hours at home, and has done a 3-day H ibiclens wash. The patient was induced with general anesthesia. We then shaved, and the patient received a Betadine scrub followed by ChloraPrep. The patient was in the dorsal lithotomy position. Drapes were placed and then again prepped with Chloraprep. A 16-Paraguayan Leyva catheter was inserted. We made a 4 cm incision in the perineum. We then dissected down and identified the bulbar spongiosis muscle. The muscle layer was opened. We identified the urethra and it was mobilized laterally as well as proximally. We did take down the central tendon as much as possible, however dissection was challenging as patient anterior protrusion of his rectum against the urethra. We placed a flexible cystoscope and noted that our dissection was taken up to the level of the bladder neck. Inspection of bladder revealed injury and no urethral injury. We then irrigated copiously. We secured the mesh to the spongiosum with 3-0 Vicryl suture with the proximal end at point of dissection of central tendon. We used the Advance trocar passers to place the sling through the obturator foramen. We made 2 incisions on the left side as placement of trocars was challenging due to patient's body habitus, with repositioning of the legs and 2nd incision we were able to pass the sling appropriately through the top of the obturator foramen. The catheter was removed. We then performed flexible cystoscopy again. We inspected the urethra in the bladder, there was no injury from sling placement. We then tightened the sling. We did note that the sling did compress nicely.A 12-F Leyva catheter was inserted. We then irrigated copiously. We then closed bulbar spongiosis with a 2-0 Vicryl suture. We then tunneled the arms of the sling into the perineal incision. We performed multiple layers of closure with 2-0 Vicryl suture and the skin was closed with a 3-0 Vicryl horizontal mattress. We reapproximated the skin at the stab incisions for placement of the trocars with 4-0 Monocryl. Dermabond glue was applied to all incisions. Given the proximity of dissection to the rectum Dr. Wright from General Surgery performed rigid sigmoidoscopy inspection of the rectum and there was no injury noted, please review details from his operative note. The catheter was left to gravity. The patient was then awakened and taken to the recovery room in stable condition. Estimated Blood Loss 100 Complications No immediate complications Condition Stable Disposition PACU
--- NOTE | 2025-07-20 14:18 | SUR.PHASEI ---
left message with care coordination to notify them of patient's unplanned admit to hospital after his surgical procedure.
--- NOTE | 2025-07-20 15:10 | ADMGEN ---
This patient, Robert Alonso, was admitted to Medical Room 346-01. Patient/family oriented to hospital policies and general routines including ID bracelet, bed and alarms, visiting hours, pain management, procedures, bathroom and other care routines, personal items, smoking policy, room service/diet, and visiting hours. Information on how to activate the Rapid Response Team has been discussed. Patient/Family are encouraged to report perceived risks to care and to ask questions if they do not understand what they are told or what they should do.
[2025-07-20] MEDS: dilTIAZem HCL CD 180 MG CAP.24HR PO (17:51)
[2025-07-20] MEDS: DOCUSATE SODIUM 100 MG CAPSULE PO (17:51)
--- NOTE | 2025-07-20 20:21 | W.PM.PROC2 ---
Procedure Note - Detailed Date of Procedure 07/20/25 Pre-op Diagnosis male stress incontinence Post-op Diagnosis Same Procedure Performed Evaluation under anesthesia, rigid proctosigmoidoscopy Surgeon Kolton Wright MD Anesthesia General Indications Patient is a 75-year-old male who was in the operating room having a urethral sling procedure performed by Dr. Wheat force male stress incontinence. I was asked to come into the operating room by Dr. Wheat to evaluate the rectum which was very close to the area dissection of the urethra. Findings The distal rectum appeared to be intact without evidence of any intraoperative injury. Rigid proctosigmoidoscopy was performed to approximately 18cm from the anal verge. There was no masses or abnormalities in the anal canal, rectum, or sigmoid colon. Patient did have a large external hemorrhoid. Description of Procedure I was asked to come urgently into the operating room to evaluate the rectum as Dr. Wheat was performing a referral sling from a perineal approach for male stress incontinence. When I arrived into the operating the patient was under general endotracheal anesthesia and was stable. Dr. Wheat showed me his area dissection of the urethra which was near the rectum. On initial viewing of the area dissection I did not see any obvious evidence of defect in the serosa of the rectum. Dr. Wheat continued his surgery and performed the urethral sling and after he closed the incision I returned back to the operating room and performed a rigid proctosigmoidoscopy the patient was still under general anesthesia. External inspection of the perianal region revealed a fairly large right-sided external hemorrhoid which was non thrombosed. Then with digital rectal examination did not feel any masses within the anal canal. A lubricated rigid proctosigmoidoscope was advanced into the anal canal and with insufflation advanced into the rectum and sigmoid colon. I advanced the proctoscope to a distance of 18cm from the tip at the anal verge under direct visualization all the while insufflating. There was some stool within the rectal vault. I suctioned away this semi solid stool to get a good view of the rectal and sigmoid colon mucosa. Upon visual examination of the mucosa circumferentially of the sigmoid colon and rectum I did not find any polyps or in the sigmoid colon. Specifically in the portion of the distal rectum I did not find any areas of injury to the rectum. I removed the rigid proctoscope from the anal canal and then the procedure was terminated. The patient tolerated the procedure well no complications. All sponges, needles, and instrument counts were correct at the end procedure. EBL was _0__cc for the rigid proctosigmoidoscopy. The patient was awakened and taken to recovery in stable and satisfactory condition. Implants None Estimated Blood Loss 100 Pathology None sent Complications No immediate complications Condition Stable Disposition PACU [facility] Billing Surgery - Charge Forward: Surgery Billing
[2025-07-20] MEDS: ROSUVASTATIN 5 MG TABLET PO (20:24)
[2025-07-20] MEDS: HYDROcodone/acetaminophen (*CRX) 5-325 MG TABLET 1 TAB PO (20:24)
[2025-07-20] MEDS: GABAPENTIN 300 MG CAPSULE 900 MG PO (20:24)
[2025-07-20] MEDS: EZETIMIBE 10 MG TABLET PO (20:24)
[2025-07-20] MEDS: LEVOTHYROXINE SODIUM 150 MCG TABLET PO (20:24)
[2025-07-20] MEDS: VANCOMYCIN HCL 1,000 MG in SODIUM CHLORIDE 0.9% IV 250 ML 250 MG IVPB (23:53)
[2025-07-21 05:04] LABS: Hematocrit 38.6 % (42.0-52.0); Hemoglobin 12.8 g/dL (14.0-18.0)
[2025-07-21 05:05] LABS: Platelet Count Result 218 k/mm3 (150-375)
[2025-07-21 05:15] LABS: Anion Gap 7 mmol/L (4-12); Blood Urea Nitrogen 21 mg/dL (9-20); Calcium 8.9 mg/dL (8.4-10.2); Carbon Dioxide 24 mmol/L (22-30); Chloride 104 mmol/L (98-107); Estimated CRCL calculation 92 ml/min; Estimated Glomerular Filt Rate > 60; Glucose 141 mg/dL (65-110); Potassium 4.5 mmol/L (3.4-5.0); Sodium 135 mmol/L (137-145)
[2025-07-21 05:29] VITALS: BP 158/76; PULSE 61; RESP 18; TEMP 36.1; O2SAT 98
[2025-07-21] MEDS: LOSARTAN POTASSIUM 100 MG TABLET PO (08:33)
[2025-07-21] MEDS: DOCUSATE SODIUM 100 MG CAPSULE PO (08:33)
[2025-07-21] MEDS: ENOXAPARIN 30 MG/0.3 ML SYRINGE SUB-Q (08:34)
[2025-07-21] MEDS: GENTAMICIN 80MG/SOD CHL 50 ML 80 MG/50 ML BAG 100 MG IVPB (09:03)
[2025-07-21] MEDS: VANCOMYCIN HCL 1,000 MG in SODIUM CHLORIDE 0.9% IV 250 ML 250 MG IVPB (09:06)
--- NOTE | 2025-07-21 10:34 | WPDANESPN ---
Anes - Prog Note Post-Op Date/Time: 07/21/25 10:34 Cardiovascular status: normal Respiratory status: normal Airway patency: baseline Mental status: baseline Post-Op hydration status: normal Vital Signs: Last Vital Signs Temp 36.1 C L 07/21/25 05:29 Pulse 61 07/21/25 05:29 Resp 18 07/21/25 05:29 BP 158/76 H 07/21/25 05:29 Pulse Ox 98 07/21/25 05:29 O2 Del Method Room Air 07/21/25 08:32 O2 Flow Rate 8 07/20/25 14:15 Pain Score (VAS): 0 I/O: Intake & Output 07/20/25 07/21/25 07/21/25 23:59 07:59 15:59 Intake Total 240 800 240 Output Total 2000 600 Balance 240 -1200 -360 Laboratory Tests 07/21/25 04:48 07/21/25 04:48 07/20/25 07/20/25 07/20/25 14:02 17:34 20:55 Hgb Hct Plt Count MPV Sodium Potassium Chloride Carbon Dioxide Anion Gap BUN Creatinine Estim Creat Clear Calc Estimated GFR Glucose POC Capillary Glucose 108 H 130 H 176 H Calcium 07/21/25 07/21/25 04:48 08:02 Hgb 12.8 L Hct 38.6 L Plt Count 218 MPV 10.0 Sodium 135 L Potassium 4.5 Chloride 104 Carbon Dioxide 24 Anion Gap 7 BUN 21 H Creatinine 0.88 Estim Creat Clear Calc 92 Estimated GFR > 60 Glucose 141 H POC Capillary Glucose 137 H Calcium 8.9 Post-procedural complaints: none Patient Feedback: Patient satisfied with anesthetic care.
--- NOTE | 2025-07-21 13:19 | PM.DS ---
DS: Admitting Diagnosis Discharge Date 07/21/2025 Admitting Diagnosis male stress incontinence morbid obesity DS: Discharge Diagnosis Discharge Diagnosis (1) Stress incontinence: Code(s): N39.3 - Stress incontinence (female) (male) Status: Acute Assessment and Plan: POD 1 1. Placement of AMS Advance male sling. 2. Cystoscopy. Patient to follow up with Dr. Peña in 1-2 weeks. DS: Summary Hospital Course Hospital Course: male stress incontinence morbid obesity POD1 Procedure Performed 1. Placement of AMS Advance male sling. 2. Cystoscopy. Patient is doing well and passed voiding trial this morning. He was given a discharge packet with all directions listed for post op care. Status at Discharge Overall status at discharge: patient is back to baseline Time Spent with Patient Time attestation: Total time spent providing and/or coordinating discharge services: Exam Const: General: comfortable and no acute distress Eyes: General: appearance normal, both eyes and all related structures Resp: Effort & Inspection: normal respiratory effort GI: GI Palp: Yes Soft to palpation and No Tenderness to palpation present (GI) Other: BM this morning Skin: General skin exam: normal color Psych: Mental Status: mental status grossly normal Affect: normal affect DS: Data Data Completed and Pending Labs on day of discharge: Labs from last 24 hours 07/21/25 07/21/25 07/21/25 11:52 08:02 04:48 Hgb 12.8 L Hct 38.6 L Plt Count 218 MPV 10.0 Sodium 135 L Potassium 4.5 Chloride 104 Carbon Dioxide 24 Anion Gap 7 BUN 21 H Creatinine 0.88 Estim Creat Clear Calc 92 Estimated GFR > 60 Glucose 141 H POC Capillary Glucose 112 H 137 H Calcium 8.9 07/20/25 07/20/25 07/20/25 20:55 17:34 14:02 Hgb Hct Plt Count MPV Sodium Potassium Chloride Carbon Dioxide Anion Gap BUN Creatinine Estim Creat Clear Calc Estimated GFR Glucose POC Capillary Glucose 176 H 130 H 108 H Calcium Discharge Plan Discharge Patient Disposition: Home Discharge Instructions: MAY RESTART ELIQUIS THREE DAYS AFTER SURGERY. MAY RESTART TRULICITY NEXT WEEK DISCHARGE PACKET SENT HOME WITH THE PATIENT. Patient Instructions: Apixaban (By mouth) Patient Language: Salvadorean Discharge Medications: Continued levothyroxine 150 mcg tablet 150 mcg PO HS gabapentin 300 mg capsule 900 mg PO HS losartan 100 mg tablet 100 mg PO QAM metformin 500 mg tablet extended release 24 hr 1,000 mg PO BID diltiazem HCl 180 mg capsule,ext.rel 24h degradable 180 mg PO QACDINNER ezetimibe 10 mg tablet 10 mg PO HS rosuvastatin 5 mg tablet 5 mg PO HS Eliquis 5 mg tablet 5 mg PO BID Trulicity 1.5 mg/0.5 mL pen injector 1.5 mg SUBCUT WEEKLY Rx Instructions: TUESDAYS Mentanx 1 cap PO BID (DME) OneTouch Verio test strips Strip MISCELLANEOUS MENTANX 1 cap PO BID Discontinued levofloxacin 500 mg tablet 500 mg PO DAILY No Action acetaminophen 500 mg Capsule 1,000 mg PO Q6H PRN (Reason: Pain) cephalexin 500 mg capsule 500 mg PO Q8H Qty: 9 0RF Patient Comments: PRIOR TO DENTIST APPT
== END 2025-07-21 14:15 | disposition home or self-care (01) ==
LOC: ANHSURGERY 08:58 → ANH3MED 15:23
PROVIDERS: Surgery; PCP Internal Medicine; Visit Provider Urology
PROC: (CPT 53440; principal; 2025-07-20 11:30)
PROC: 0DJD8ZZ Inspection of Lower Intestinal Tract, Via Natural or Artificial Opening Endoscopic (ICD-10-PCS; CPT 45330; 2025-07-20 11:30)
DX: N39.3 Stress incontinence (female) (male) (principal); K64.4 Residual hemorrhoidal skin tags; E11.9 Type 2 diabetes mellitus without complications; Z85.46 Personal history of malignant neoplasm of prostate; E66.01 Morbid (severe) obesity due to excess calories; Z68.41 Body mass index [BMI] 40.0-44.9, adult
CPT/HCPCS: 53440; 45300; 36415; 80048; 82948; 85014; 85018; 85049; A9270; C1771; J0690; J1100; J1580; J1650; J2405; J2704; J3010; J3373; J7030; J7050; J7120